=== PATIENT | male | born 1945 | race Caucasian/White ===

== ENCOUNTER → 2016-07-17 | Outpatient (CLI) | payer OTHER | LOC: BHFA 09:30 | PROVIDERS: ATTEND Internal Medicine Cardiovascular Disease | DX: Z01.810 Encounter for preprocedural cardiovascular examination (principal); I25.10 Atherosclerotic heart disease of native coronary artery without angina pectoris; R06.09 Other forms of dyspnea; I70.0 Atherosclerosis of aorta; R94.31 Abnormal electrocardiogram [ECG] [EKG] ==

== ENCOUNTER → 2016-07-19 | Outpatient (CLI) | payer OTHER | LOC: BHFA 13:00 | PROVIDERS: ATTEND Internal Medicine Cardiovascular Disease | DX: I25.10 Atherosclerotic heart disease of native coronary artery without angina pectoris (principal) | CPT/HCPCS: 78452; 93017; A9500; J2785 ==

== ENCOUNTER → 2016-07-20 | Outpatient (CLI) | payer OTHER | LOC: BHFA 11:30 | PROVIDERS: ATTEND Internal Medicine Cardiovascular Disease | DX: I25.10 Atherosclerotic heart disease of native coronary artery without angina pectoris (principal); R94.31 Abnormal electrocardiogram [ECG] [EKG] ==

== ENCOUNTER 2016-08-09 08:34 | Inpatient (IN) | payer OTHER ==
--- NOTE | 2016-08-08 16:48 | GHP ---
[f rep st] PREOP HISTORY AND PHYSICAL ADMISSION DIAGNOSIS: Right renal mass. HISTORY OF PRESENT ILLNESS: This is a 70-year-old gentleman who is sent to me for evaluation and management of a right renal mass. The area of concern was noted on a CAT scan, and it was used to evaluate right flank pain. The mass measures 3.2 cm, and it was done in June 2016. Mass is solid and is lower pole lateral. At the present time he is admitted for a robotic-assisted partial nephrectomy. He has had no hematuria. He used to smoke but has stopped , and he has had no weight loss. Right flank pain is really related to the 12th rib. I reviewed his CAT scan and images with him. He has had significant atherosclerotic vascular disease, and has a cardiac evaluation and cleared by Dr. Alvarez for his surgery. PAST MEDICAL HISTORY: Atherosclerosis, diabetes, elevated PSA, hypertension, kidney stones, and right rib contusion. PAST SURGICAL HISTORY: Vasectomy. MEDICATIONS: Atorvastatin, Combivent, hydrochlorothiazide, lisinopril, metformin. ALLERGIES: No known drug allergies. FAMILY HISTORY: Coronary artery disease, diabetes, hypertension, prostate cancer. SOCIAL HISTORY: He denies illicit substance use. He is a former smoker. REVIEW OF SYSTEMS: No fevers, chills, or weight loss. Normal vision. No sore throat. Denies chest pain, denies shortness of breath. Denies nausea, vomiting , diarrhea, or constipation. Denies rash. Denies tingling or numbness. Has rib pain but no back pain. Denies polydipsia. Has no anxiety or depression has no hemolymphatic complaints. PHYSICAL EXAM: GENERAL: In the office his BMI was 34.57. HEENT: Normal. CHEST: Clear. HEART: Regular rate and rhythm. ABDOMEN: Normal, no organomegaly, rebound or guarding. He does have abdominal obesity. LOWER EXTREMITIES: Normal. RECTAL/PROSTATE: Have been deferred. PLAN: At the present time he is admitted for the above procedure. Indications and complications discussed, written and verbal consent was obtained. /[id number]/MODL MTDD
[2016-08-09] MEDS ORDERED: LIDOCAINE 1% 2 ML INJ ONE (09:08)
[2016-08-09] MEDS ORDERED: THROMBIN (BOVINE) 5,000 UNIT VIAL TP ONE (09:35)
[2016-08-09] MEDS ORDERED: MANNITOL 20% 100 GM/500 ML BAG IV ONE (09:44)
[2016-08-09] MEDS ORDERED: ROCURONIUM 50 MG/5 ML VIAL ONE ×3 (10:32→13:31)
[2016-08-09] MEDS ORDERED: fentaNYL 100 MCG/2 ML INJ ONE ×2 (10:32→14:55)
[2016-08-09] MEDS ORDERED: ONDANSETRON 4 MG/2 ML VIAL ONE (10:32)
[2016-08-09] MEDS ORDERED: DEXAMETHASONE 4 MG/ML VIAL ONE (10:32)
[2016-08-09] MEDS ORDERED: LIDOCAINE 2% 5 ML SDV ONE (10:32)
[2016-08-09] MEDS ORDERED: PROPOFOL 200 MG/20 ML VIAL ONE (10:32)
[2016-08-09] MEDS ORDERED: SUCCINYLCHOLINE CHLORIDE*ANESTHESIA ONLY*200 MG/10 ML SYR IVP ONE (11:02)
[2016-08-09] MEDS ORDERED: CEFAZOLIN 2 GM/DEXTROSE/100 ML BAG IV ONE (11:27)
[2016-08-09] MEDS ORDERED: HYDROmorphONE/DILAUDID 2 MG/ML INJ ONE (11:41)
[2016-08-09] MEDS ORDERED: BUPIVACAINE/EPI 0.5% 30 ML SDV ONE (12:54)
[2016-08-09] MEDS ORDERED: SUGAMMADEX SODIUM 200 MG/2 ML VIAL IVP ONE (14:06)
[2016-08-09] MEDS ORDERED: IPRATROPIUM/ALBUTEROL 4GM MDI IH PRN (14:34)
[2016-08-09] MEDS ORDERED: ACETAMINOPHEN 325 MG TAB PO PRN (14:35)
[2016-08-09] MEDS ORDERED: ZOLPIDEM TARTRATE 5 MG TAB PO PRN (14:35)
[2016-08-09] MEDS ORDERED: ONDANSETRON DISINTEGRATING 4 MG TAB PO PRN (14:35)
[2016-08-09] MEDS ORDERED: ONDANSETRON 4 MG/2 ML VIAL IVP PRN (14:35)
--- NOTE | 2016-08-09 14:41 | POSTOPPROG ---
Post Op Note Date of Operation: 08/09/16 Surgeon: Celso Jeffries Operations Manager Assistant: palma Anesthesia: GET(General Endotracheal) Pre-op Diagnosis: rt renal mass Post-op Diagnosis: same Indication: same Procedure: rt radical neph / partial ureterectomy Inf/Abcess present in the surg proc area at time of surgery?: No EBL: 100-500 Specimen(s): sent, dictated noted
--- NOTE | 2016-08-09 16:03 | GOP ---
[f rep st] OPERATIVE REPORT DATE OF OPERATION: 08/09/2016 SURGEON: Celso Jeffries MD ASSISTANT PROFESSOR OF ART: Aretha Daley CFA. ANESTHESIOLOGIST: PREOPERATIVE DIAGNOSIS: Right solid renal mass. POSTOPERATIVE DIAGNOSIS: Right solid renal mass. PROCEDURE PERFORMED: Right radical nephrectomy with partial ureterectomy/laparoscopic/robotic ricardo torres, converted to open. FINDINGS: SPECIMENS: Right radical nephrectomy with partial ureterectomy. ESTIMATED BLOOD LOSS: 300 mL. DESCRIPTION OF PROCEDURE: Gentleman underwent general anesthesia, and after appropriate time-out an d counseling his family, he was prepped and draped in normal sterile fashion in the appropriate posi tion for the marked right partial nephrectomy. Then Veress needle placed intraabdominally just late ral to the umbilicus, and it was inflated to 15 mmHg pressure of carbon dioxide, and then I placed 4 ports; the camera port, and then the 8 mm robot equal opportunity assistant port, and then the equal opportunity assistant 12 mm port. Then with a bipolar fenestrated in left hand and monopolar scissors in the right side, I mobilized the cecum and the colon and identified the ureter, and swept that lateral so I could carry it up to the site of the renal vein and the hilum. It should be said, throughout this dissection he had this dense adhering fat to all dissection margins, so when I got to the renal vein, dissected out the re nal artery, and on the CT scan he had a lower pole bifurcation of the renal vein, and the vein and a rtery once again were encased in this dense, kind of inflammatory fat, so dissection was carried out to where I could sweep the renal vein off the posterior vessels, and felt that we could get appropr iate clamp and non-perfusion of the kidneys through the operative procedure when the time came to it . At that point, with ultrasound identified the renal mass, and then with considerable dissection c ould identify the renal capsule, but the perinephric fat was quite stuck and adhered to the renal ca psule, so with meticulous dissection carried that out to where I could identify the mass that had be en outlined by ultrasound, and mobilized and placed in a position where that could be immobilized an d I felt that I could excise the lesion. Then used small bulldog clamps to clamp the arteries and t he vein, and then started the dissection, and he still had perfusion of the kidney, so went back and tried to use a DeBakey laparoscopic vascular clamp to go across the hilum, and even with that there was still perfusion of the kidney and I felt there was going to be significant blood loss. With hi s cardiovascular disease I felt that potentially any significant blood loss would be potentially pro blematic with this gentleman, and through the dissection of the kidney when I got to the hilum of th e kidney, the tumor actually appeared to go into the renal sinus fat. So with potential bleeding an d appearance of the tumor, I elected to open the patient, and so after making an abdominal incision going down I could identify the vascular pedicle, which was clamped, and then dissected out the tumo r. Once again, it appeared that it went well into the renal hilum, and that was somewhat suggestive on the CAT scan. So with that, I wanted to make sure that there was no significant residual tumor left behind. Based on my judgment at hand, I elected to undergo a total nephrectomy, so the vascula r pedicle was clamped with a vascular stapling device. We mobilized the kidney in the superior part and then the gonadal vessels and ureter were all managed with a stapling device. The specimen was removed. At that point, the operative site was irrigated and inspected, and there were no bleeding sites identified. I elected not to place a drain. At that point, I the irrigated the operative sit e and there was no bleeding and there was no suggestion of local disease left behind. At that point , my impression was that the operative procedure was completed and the abdominal incision and port s ites were closed with 0 Vicryl in layers and hemostasis was noted. Subcutaneous tissue irrigated an d then skin faustino were used to close all the operative sites. He tolerated the procedure well. H e will be admitted for postoperative care. We did use Marcaine local infiltration of the incisions. He was stable throughout the case with no significant hypotension. It should be said also that wh en we were doing the dissection of the hilum that he actually had blood going down the ureter into t he bladder, so really felt that grossly this was encroaching upon the hilum of the kidney and that a total nephrectomy was appropriate. We will discuss the issues with his family, and he will be admi tted for postoperative care. Specimen sent for pathologic assessment. COMPLICATIONS: None, but conversion to an open procedure was made. /[id number]/MODL
[2016-08-09] MEDS: POTASSIUM Cl (KCl) 20 MEQ in 1/2 NS 1,000 ML IV SCH (17:15)
[2016-08-09] MEDS: oxyCODONE IR 5 MG TAB PO PRN ×2 (17:15→20:22)
[2016-08-09] MEDS: metFORMIN HCL 500 MG TAB PO SCH (18:27)
[2016-08-09] MEDS: NIACIN 500 MG TAB PO SCH (20:22)
[2016-08-10] MEDS: oxyCODONE IR 5 MG TAB PO PRN ×4 (03:17→15:26)
[2016-08-10] MEDS: POTASSIUM Cl (KCl) 20 MEQ in 1/2 NS 1,000 ML IV SCH ×2 (04:46→14:31)
[2016-08-10 05:34] LABS: % IMMATURE GRANULYOCYTES 0.4 % (0.0-1.1); ABSOLUTE IMMATURE GRANULOCYTES 0.04 10^3/uL (0.00-0.10); ADD DIFF? NO; ADD MORPH? NO; ADD SCAN? NO; ATYPICAL LYMPHOCYTE FLAG 0 (0-99); FRAGMENT RBC FLAG 0 (0-99); HEMATOCRIT 36.7 % (40.0-51.0); HEMOGLOBIN 13.3 g/dL (13.7-17.5); LEFT SHIFT FLG 0 (0-99); LIPEMIA HEMOLYSIS FLAG 90 (0-99); MEAN CELL HEMOGLOBIN 33.2 pg (27.9-34.1); MEAN CELL HEMOGLOBIN CONCENTR. 36.2 g/dL (32.4-36.7); MEAN CELL VOLUME 91.5 fL (81.5-99.8); MEAN PLATELET VOLUME 9.3 fL (8.7-11.7); PLATELET CLUMPS FLAG 10 (0-99); PLATELET COUNT 194 10^3/uL (150-400); RED BLOOD CELL COUNT 4.01 10^6/uL (4.40-6.38); RED CELL DISTRIBUTION WIDTH 12.1 % (11.5-15.2)
[2016-08-10 05:57] LABS: ANION GAP 7 mEq/L (8-16); CALCIUM 8.2 mg/dL (8.5-10.4); CARBON DIOXIDE 22 mEq/l (22-31); CHLORIDE 104 mEq/L (97-110); CREATININE 1.5 mg/dL (0.7-1.3); GLOMERULAR FILTRATION RATE 46; GLUCOSE 103 mg/dL (70-100); POTASSIUM 4.9 mEq/L (3.5-5.2); SODIUM 133 mEq/L (134-144)
--- NOTE | 2016-08-10 07:08 | SOAPPROG ---
SOAP Progress Note Assessment/Plan: Assessment: Renal cell cancer Acute POD #1, doing well , cont post op care Plan: doing well, do not advance diet until Bowel fx improves 08/10/16 07:06 Subjective: ok, prefers catheter remain in and aware of risks Objective: Vital Signs Temp Pulse Resp BP Pulse Ox 36.6 C 72 18 124/68 H 0 L 08/10/16 03:29 08/10/16 03:29 08/10/16 03:29 08/10/16 03:29 08/10/16 03:29 Laboratory Results 08/10/16 05:20 08/10/16 05:20 08/09/16 08/10/16 08/11/16 05:59 05:59 05:59 Intake Total 3650 Output Total 900 Balance 2750 Physical Exam - Physical Exam General Appearance: alert Neck: supple Respiratory: No respiratory distress Cardiac/Chest: regular rate, rhythm Abdomen: soft Skin: warm/dry Extremities: No calf tenderness Neuro/Psych: alert, oriented x 3 ICD10 Worksheet Patient Problems: Problems Problem Status Onset Renal cell cancer Acute - ICD10 Problem Qualifiers (1) Renal cell cancer Qualifiers: Laterality: right Qualified Code(s): C64.1 - Malignant neoplasm of right kidney, except renal pelvis
[2016-08-10] MEDS: metFORMIN HCL 500 MG TAB PO SCH ×2 (08:00→18:08)
[2016-08-10] MEDS: LISINOPRIL 40 MG TAB PO SCH (08:01)
[2016-08-10] MEDS: ATORVASTATIN CALCIUM 10 MG TAB PO SCH (08:01)
[2016-08-10] MEDS: HYDROCHLOROTHIAZIDE 25 MG TAB PO SCH (08:01)
[2016-08-10] MEDS: ASPIRIN 81 MG CHEWABLE TAB PO SCH (14:33)
[2016-08-10] MEDS: NIACIN 500 MG TAB PO SCH (20:27)
[2016-08-11] MEDS: POTASSIUM Cl (KCl) 20 MEQ in 1/2 NS 1,000 ML IV SCH ×2 (01:17→13:32)
[2016-08-11] MEDS: metFORMIN HCL 500 MG TAB PO SCH ×2 (07:52→17:31)
--- NOTE | 2016-08-11 08:04 | SOAPPROG ---
SOAP Progress Note Assessment/Plan: Assessment: Renal cell cancer Acute POD #2, doing well , cont post op care , path pending Plan: doing well, do not advance diet until Bowel fx improves 08/11/16 08:04 Subjective: progressing, abdomen pain noted as gas pain Objective: Vital Signs Temp Pulse Resp BP Pulse Ox 36.9 C 80 18 111/68 93 08/11/16 07:26 08/11/16 07:26 08/11/16 07:26 08/11/16 07:26 08/11/16 07:26 Laboratory Results 08/10/16 05:20 08/10/16 05:20 08/10/16 08/11/16 08/12/16 05:59 05:59 05:59 Intake Total 3650 250 Output Total 900 4700 Balance 0260 -2750 Physical Exam - Physical Exam General Appearance: alert Respiratory: No respiratory distress Cardiac/Chest: regular rate, rhythm Abdomen: soft, distended, No guarding, No rebound (dressings ok) Back: No CVA tenderness Skin: warm/dry Extremities: No calf tenderness Neuro/Psych: alert, oriented x 3 ICD10 Worksheet Patient Problems: Problems Problem Status Onset Renal cell cancer Acute - ICD10 Problem Qualifiers (1) Renal cell cancer Qualifiers: Laterality: right Qualified Code(s): C64.1 - Malignant neoplasm of right kidney, except renal pelvis
[2016-08-11] MEDS: ATORVASTATIN CALCIUM 10 MG TAB PO SCH (09:41)
[2016-08-11] MEDS: HYDROCHLOROTHIAZIDE 25 MG TAB PO SCH (09:41)
[2016-08-11] MEDS: LISINOPRIL 40 MG TAB PO SCH (09:42)
[2016-08-11] MEDS: METOCLOPRAMIDE 10 MG/2 ML VIAL IVP SCH ×3 (12:34→19:33)
[2016-08-11] MEDS: NIACIN 500 MG TAB PO SCH (20:06)
[2016-08-12] MEDS: METOCLOPRAMIDE 10 MG/2 ML VIAL IVP SCH ×5 (00:13→23:46)
[2016-08-12] MEDS: POTASSIUM Cl (KCl) 20 MEQ in 1/2 NS 1,000 ML IV SCH ×3 (00:13→20:22)
[2016-08-12 05:43] LABS: % IMMATURE GRANULYOCYTES 0.4 % (0.0-1.1); ABSOLUTE IMMATURE GRANULOCYTES 0.03 10^3/uL (0.00-0.10); ADD DIFF? NO; ADD MORPH? NO; ADD SCAN? NO; ATYPICAL LYMPHOCYTE FLAG 0 (0-99); FRAGMENT RBC FLAG 0 (0-99); HEMATOCRIT 33.8 % (40.0-51.0); HEMOGLOBIN 12.6 g/dL (13.7-17.5); LEFT SHIFT FLG 0 (0-99); LIPEMIA HEMOLYSIS FLAG 90 (0-99); MEAN CELL HEMOGLOBIN 33.5 pg (27.9-34.1); MEAN CELL HEMOGLOBIN CONCENTR. 37.3 g/dL (32.4-36.7); MEAN CELL VOLUME 89.9 fL (81.5-99.8); MEAN PLATELET VOLUME 9.4 fL (8.7-11.7); PLATELET CLUMPS FLAG 30 (0-99); PLATELET COUNT 169 10^3/uL (150-400); RED BLOOD CELL COUNT 3.76 10^6/uL (4.40-6.38)
[2016-08-12 06:00] LABS: ANION GAP 7 mEq/L (8-16); CALCIUM 8.7 mg/dL (8.5-10.4); CARBON DIOXIDE 23 mEq/l (22-31); CHLORIDE 99 mEq/L (97-110); CREATININE 1.3 mg/dL (0.7-1.3); GLOMERULAR FILTRATION RATE 55; GLUCOSE 99 mg/dL (70-100); POTASSIUM 4.3 mEq/L (3.5-5.2); SODIUM 129 mEq/L (134-144)
--- NOTE | 2016-08-12 07:54 | SOAPPROG ---
SOAP Progress Note Assessment/Plan: Assessment: Renal cell cancer Acute POD #3, doing well , cont post op care , path pending Plan: doing well, do not advance diet until Bowel fx improves 08/12/16 07:52 Subjective: doing well , no bowel fx yet Objective: Vital Signs Temp Pulse Resp BP Pulse Ox 36.7 C 84 18 149/84 H 94 08/12/16 03:33 08/12/16 03:33 08/12/16 03:33 08/12/16 03:33 08/12/16 03:33 Laboratory Results 08/12/16 05:04 08/12/16 05:04 08/11/16 08/12/16 08/13/16 05:59 05:59 05:59 Intake Total 250 200 Output Total 4700 2400 350 Balance -4450 -2200 -350 Physical Exam - Physical Exam General Appearance: WD/WN Respiratory: No respiratory distress Cardiac/Chest: regular rate, rhythm Abdomen: soft, No guarding Back: No CVA tenderness Extremities: No calf tenderness Neuro/Psych: alert, oriented x 3 ICD10 Worksheet Patient Problems: Problems Problem Status Onset Renal cell cancer Acute - ICD10 Problem Qualifiers (1) Renal cell cancer Qualifiers: Laterality: right Qualified Code(s): C64.1 - Malignant neoplasm of right kidney, except renal pelvis
[2016-08-12] MEDS ORDERED: BISACODYL 10 MG SUPP PR PRN (07:55)
[2016-08-12] MEDS: metFORMIN HCL 500 MG TAB PO SCH ×2 (08:51→17:07)
[2016-08-12] MEDS: HYDROCHLOROTHIAZIDE 25 MG TAB PO SCH (08:52)
[2016-08-12] MEDS: ATORVASTATIN CALCIUM 10 MG TAB PO SCH (08:53)
[2016-08-12] MEDS: LISINOPRIL 40 MG TAB PO SCH (08:53)
[2016-08-12] MEDS: ASPIRIN 81 MG CHEWABLE TAB PO SCH (14:19)
[2016-08-12] MEDS: NIACIN 500 MG TAB PO SCH (20:22)
[2016-08-13] MEDS: METOCLOPRAMIDE 10 MG/2 ML VIAL IVP SCH ×4 (06:10→23:49)
[2016-08-13] MEDS: POTASSIUM Cl (KCl) 20 MEQ in 1/2 NS 1,000 ML IV SCH (06:10)
--- NOTE | 2016-08-13 07:27 | SOAPPROG ---
SOAP Progress Note Assessment/Plan: Assessment: Renal cell cancer Acute POD #4, doing well , cont post op care , path pending Plan: doing well, advance diet since mild improvement Bowel fx improves 08/13/16 07:34 Subjective: improving Objective: Vital Signs Temp Pulse Resp BP Pulse Ox 36.6 C 80 18 131/86 H 94 08/13/16 04:00 08/13/16 04:00 08/13/16 04:00 08/13/16 04:00 08/13/16 04:00 Laboratory Results 08/12/16 05:04 08/12/16 05:04 08/12/16 08/13/16 08/14/16 05:59 05:59 05:59 Intake Total 200 2075 Output Total 2400 1650 Balance -2200 425 Physical Exam - Physical Exam General Appearance: alert Respiratory: No respiratory distress Cardiac/Chest: regular rate, rhythm Abdomen: soft, No guarding Back: No CVA tenderness Extremities: No non-tender, No calf tenderness, No Dank's sign Neuro/Psych: alert, oriented x 3 ICD10 Worksheet Patient Problems: Problems Problem Status Onset Renal cell cancer Acute - ICD10 Problem Qualifiers (1) Renal cell cancer Qualifiers: Laterality: right Qualified Code(s): C64.1 - Malignant neoplasm of right kidney, except renal pelvis
[2016-08-13] MEDS: HYDROCHLOROTHIAZIDE 25 MG TAB PO SCH (08:18)
[2016-08-13] MEDS: metFORMIN HCL 500 MG TAB PO SCH ×2 (08:19→18:46)
[2016-08-13] MEDS: LISINOPRIL 40 MG TAB PO SCH (08:19)
[2016-08-13] MEDS: ATORVASTATIN CALCIUM 10 MG TAB PO SCH (08:22)
[2016-08-13] MEDS: ASPIRIN 81 MG CHEWABLE TAB PO SCH (14:52)
[2016-08-13] MEDS: NIACIN 500 MG TAB PO SCH (20:15)
[2016-08-14] MEDS: METOCLOPRAMIDE 10 MG/2 ML VIAL IVP SCH (05:41)
[2016-08-14] MEDS: metFORMIN HCL 500 MG TAB PO SCH (08:37)
[2016-08-14] MEDS: ATORVASTATIN CALCIUM 10 MG TAB PO SCH (08:39)
[2016-08-14] MEDS: HYDROCHLOROTHIAZIDE 25 MG TAB PO SCH (08:40)
[2016-08-14] MEDS: LISINOPRIL 40 MG TAB PO SCH (08:41)
[2016-08-14 11:47] VITALS: BP 115/83; PULSE 80; RESP 16; TEMP 97.8; O2SAT 90
[2016-08-14] MEDS ORDERED: HYDROCODONE/APAP 5/325 TAB PO PRN (14:22)
== END 2016-08-14 16:53 | disposition home or self-care (01) | DRG 658 ==
LOC: F3E 08:34
PROVIDERS: ADMIT Specialist; ATTEND Specialist
PROC: 0TT00ZZ Resection of Right Kidney, Open Approach (ICD-10-PCS; principal; 2016-08-09 10:45)
PROC: 8E0W8CZ Robotic Assisted Procedure of Trunk Region, Via Natural or Artificial Opening Endoscopic (ICD-10-PCS; principal; 2016-08-09 10:45)
PROC: 0TB60ZZ Excision of Right Ureter, Open Approach (ICD-10-PCS; principal; 2016-08-09 10:45)
PROC: 0WJG4ZZ Inspection of Peritoneal Cavity, Percutaneous Endoscopic Approach (ICD-10-PCS; principal; 2016-08-09 10:45)
DX: C64.1 Malignant neoplasm of right kidney, except renal pelvis (principal); I25.10 Atherosclerotic heart disease of native coronary artery without angina pectoris; I10 Essential (primary) hypertension; E11.9 Type 2 diabetes mellitus without complications; Z53.31 Laparoscopic surgical procedure converted to open procedure
CPT/HCPCS: J0330; J0690; J1100; J1170; J2405; J2704; J2765; J3010

== ENCOUNTER → 2016-08-31 | Outpatient (CLI) | payer OTHER | LOC: EDSTATUS 11:30 → FIMAGING 13:13 → FLAB 13:13 | PROVIDERS: ATTEND Internal Medicine Hematology & Oncology | DX: C64.9 Malignant neoplasm of unspecified kidney, except renal pelvis (principal) ==

== ENCOUNTER 2016-12-04 06:28 | Day surgery (SDC) | payer OTHER ==
[2016-12-04] MEDS ORDERED: FAMOTIDINE 20 MG TAB PO ONE (06:33)
[2016-12-04] MEDS ORDERED: NS 1,000 ML IV ONE (06:33)
[2016-12-04] MEDS ORDERED: ASPIRIN EC 325 MG TAB PO ONE ×2 (06:33→06:53)
[2016-12-04] MEDS ORDERED: diphenhydrAMINE 25 MG CAP PO ONE ×2 (06:33→06:53)
[2016-12-04] MEDS ORDERED: DIAZEPAM 5 MG TAB PO ONE (06:33)
[2016-12-04] MEDS ORDERED: FAMOTIDINE 20 MG TAB ONE (06:53)
[2016-12-04] MEDS ORDERED: DIAZEPAM 5 MG TAB ONE (06:54)
--- NOTE | 2016-12-04 07:36 | CPEKG ---
Heart Rate: 59 RR Interval: 1017 P-R Interval: 176 QRSD Interval: 108 QT Interval: 428 QTC Interval: 424 P Denton: 29 QRS Denton: 31 T Wave Denton: 4 EKG Severity - ABNORMAL ECG - EKG Impression: SINUS RHYTHM EKG Impression: PROBABLE INFERIOR INFARCT, AGE INDETERMINATE Electronically Signed By: An Han 04-Dec-2016 16:27:57
[2016-12-04 08:26] LABS: % IMMATURE GRANULYOCYTES 0.4 % (0.0-1.1); ABSOLUTE IMMATURE GRANULOCYTES 0.02 10^3/uL (0.00-0.10); ADD DIFF? NO; ADD MORPH? NO; ADD SCAN? NO; ATYPICAL LYMPHOCYTE FLAG 0 (0-99); FRAGMENT RBC FLAG 0 (0-99); HEMATOCRIT 43.6 % (40.0-51.0); HEMOGLOBIN 15.7 g/dL (13.7-17.5); LEFT SHIFT FLG 0 (0-99); LIPEMIA HEMOLYSIS FLAG 90 (0-99); MEAN CELL HEMOGLOBIN 31.7 pg (27.9-34.1); MEAN CELL VOLUME 87.9 fL (81.5-99.8); MEAN PLATELET VOLUME 9.5 fL (8.7-11.7); PLATELET CLUMPS FLAG 10 (0-99); PLATELET COUNT 192 10^3/uL (150-400); RED BLOOD CELL COUNT 4.96 10^6/uL (4.40-6.38); RED CELL DISTRIBUTION WIDTH 11.7 % (11.5-15.2)
[2016-12-04 08:37] LABS: INR 1.11 (0.83-1.16); PROTIME(PATIENT) 14.2 SEC (12.0-15.0)
[2016-12-04 08:39] LABS: ANION GAP 13 mEq/L (8-16); CALCIUM 9.4 mg/dL (8.5-10.4); CARBON DIOXIDE 25 mEq/l (22-31); CHLORIDE 101 mEq/L (97-110); CHOLESTEROL 115 mg/dL (140-220); CHOLESTEROL/HDL RATIO 2.45 RATIO (1.00-4.97); CREATININE 1.3 mg/dL (0.7-1.3); GLOMERULAR FILTRATION RATE 55; GLUCOSE 105 mg/dL (70-100); HIGH DENSITY LIPOPROTEIN 47 mg/dL (40-65); LDL/HDL RATIO 1.09 RATIO (1.00-3.64); LOW DENSITY LIPOPROTEIN 51 mg/dL (80-100); NON-HIGH DENSITY LIPOPROTEIN 68 mg/dL (90-129); POTASSIUM 3.4 mEq/L (3.5-5.2); SODIUM 139 mEq/L (134-144); TRIGLYCERIDE 86 mg/dL (40-150); VERY LOW DENSITY LIPOPROTEINS 17 mg/dL (8-25)
[2016-12-04] MEDS ORDERED: LIDOCAINE 1% 300 MG/30 ML SDV ONE (09:09)
[2016-12-04] MEDS ORDERED: VERAPAMIL 5 MG/2 ML VIAL ONE (09:10)
[2016-12-04] MEDS ORDERED: MIDAZOLAM 2 MG/2 ML VIAL ONE (09:10)
[2016-12-04] MEDS ORDERED: fentaNYL 100 MCG/2 ML INJ ONE (09:10)
[2016-12-04] MEDS ORDERED: HEPARIN 10,000 UNIT/10 ML MDV ONE (09:10)
[2016-12-04] MEDS ORDERED: IOPAMIDOL (ISOVUE-370) 150 ML BTL IV ONE (09:11)
--- NOTE | 2016-12-04 09:21 | PDGENHP ---
History & Physical Chief Complaint: abnormal stress test History of Present Illness: Patient with a histroy of high calcium score abnormal EKG and abnormal nuclear stress test Pertinent Past, Social, Family History: Patient with history of single kidney abnormal EKG, renal insufficiency, high calcium score and shortness of breath on exertion... Needs cath with renal protocol. Relevant Physical Exam: Patient is hypertensive with abnormal Reinier's test on both wrists and history of ulnar artery laceration on the right side. He also has a history of desaturation with exertion. O2 sat was 85% during stress testing...Lungs are clear and heart rhythm is normal. Normal femoral pulses Cardiorespiratory Assessment: Please see above. Patient is a candidate for sedation
--- NOTE | 2016-12-04 09:25 | PDPROPOC ---
Sedation Plan of Care Sedation Plan of Care: vital signs stable, mental status noted, patient educated of risks, benefits, alternatives, patient can tolerate sedation ASA Classification: ASA 3 Planned drugs: fentanyl, midazolam, other (etomidate) Mallampati Score: Class 3 Mallampati Reference Image: Patient passed 3-3-2 rule?: Yes
[2016-12-04] MEDS ORDERED: METOPROLOL TARTRATE 5 MG/5 ML INJ ONE (09:59)
[2016-12-04] MEDS ORDERED: NITROGLYCERIN 0.4 MG BTL SL PRN (10:24)
[2016-12-04] MEDS ORDERED: HYDROCODONE/APAP 5/325 TAB PO PRN (10:24)
[2016-12-04] MEDS ORDERED: OXYCODONE/APAP 5/325 TAB PO PRN (10:24)
[2016-12-04] MEDS ORDERED: ONDANSETRON 4 MG/2 ML VIAL IVP PRN (10:24)
[2016-12-04] MEDS ORDERED: ATROPINE SULFATE 1 MG/10 ML SYR IVP PRN (10:24)
--- NOTE | 2016-12-04 14:44 | PDDXCAT ---
Diagnostic Cath Note - . Date: 12/04/16 Hot Air Furnace Installer And Repairer: Kim Indication: other (abnormal resting EKG abnormal calcium score and abnormal perfusion concern for balanced ischemia) - Procedure Access: right groin Procedure: left heart catheterization, coronary angiography - Materials Left Heart Cath size: 6F - Findings-Left Heart Catheterization LM: 7mm and bifurcates into an LAD and Left circumflex LAD: dense calcification consistent with atherosclerosis no flow limiting stenosis of the LAD and BRE III flow is present. The second diagonal has an ostial stenosis of 80%. The vessel is small and not amendable to angioplasty LCX: 3 mm vessel with important obtuse marginal and posterolateral branch all free of flow limiting disease. RCA: Dominant vessel and with BRE III flow to PDA. EDP: 16mmHg... Complications: none Closure method: Angioseal Assessment: Severe curyung vessel atherosclerosis and coronary disease only flow limiting obstruction is branch vessel in the diagonal ostium, which should be managed medically. Severe HTN Add Norvasc 5 mg to medical regimen and track blood pressure to protect single kidney from damage by Hyptertension Plan: Follow up and double Norvasc if blod pressure remains poorly controlled. Patient Problems: Problems Problem Status Onset Renal cell cancer Acute
== END 2016-12-04 14:30 | disposition home or self-care (01) ==
LOC: FCATH 06:28
PROVIDERS: ATTEND Internal Medicine Cardiovascular Disease
PROC: 4A023N7 Measurement of Cardiac Sampling and Pressure, Left Heart, Percutaneous Approach (ICD-10-PCS; principal; 2016-12-04)
PROC: B2111ZZ Fluoroscopy of Multiple Coronary Arteries using Low Osmolar Contrast (ICD-10-PCS; principal; 2016-12-04)
DX: I25.10 Atherosclerotic heart disease of native coronary artery without angina pectoris (principal); I10 Essential (primary) hypertension
CPT/HCPCS: C1760; J1200; J1644; J2250; J3010; Q9967